=== PATIENT | male | born 1965 | race Caucasian/White ===

== ENCOUNTER 2019-07-15 08:50 | Outpatient (CLI) | payer BC ==
--- NOTE | 2019-07-15 09:21 | ULT ---
BILATERAL CAROTID DUPLEX ULTRASOUND: HISTORY: CVA TECHNIQUE: Grayscale, color-flow and spectral Doppler ultrasound imaging of the extracranial carotid artery syst ems was performed bilaterally. FINDINGS: There is minimal intimal thickening. The peak systolic velocity in the right ICA measures 61 cm/s. The peak systolic velocity in the left ICA measures 83 cm/s. Vertebral flow: antegrade, bilaterally. IMPRESSION: No hemodynamically significant stenosis of Both ICAs.
== END 2019-07-15 08:51 | disposition home or self-care (01) ==
LOC: SCSULT 08:50
PROVIDERS: ATTEND Psychiatry & Neurology Neurology
DX: I63.9 Cerebral infarction, unspecified (principal)
CPT/HCPCS: 93880

== ENCOUNTER 2019-11-09 11:57 | Observation (INO) | payer BC ==
[2019-11-09] MEDS ORDERED: Lorazepam 2 MG/ML VIAL SLOW IVP PRN (16:12)
[2019-11-09] MEDS ORDERED: Zolpidem Tartrate 5 MG TAB PO PRN (16:12)
[2019-11-09] MEDS ORDERED: Loperamide HCl 2 MG CAP PO PRN (16:12)
[2019-11-09] MEDS ORDERED: Ondansetron PF 4 MG/2 ML Vial IVP PRN (16:12)
[2019-11-09] MEDS ORDERED: Calcium Carbonate 500 MG ChewTAB PO PRN (16:12)
[2019-11-09] MEDS ORDERED: Bisacodyl 10 MG SUPP PR PRN (16:12)
[2019-11-09] MEDS ORDERED: Acetaminophen 325 MG TAB PO PRN (16:12)
[2019-11-09] MEDS ORDERED: Ondansetron ODT 4 MG TAB PO PRN (16:12)
[2019-11-09] MEDS ORDERED: Senokot S 8.6-50 MG TAB PO PRN (16:12)
[2019-11-09] MEDS ORDERED: Guaifenesin DM 100-10/5 ML UDCUP PO PRN (16:12)
[2019-11-09 16:53] VITALS: BMI 26.4
[2019-11-09] MEDS: Sodium Chloride 0.9% 1,000 ML IV SCH (18:10)
--- NOTE | 2019-11-09 18:20 | HP ---
PRIMARY CARE PHYSICIAN: Chris Gary DO REASON FOR ADMISSION: Seizure. HISTORY OF PRESENT ILLNESS: A 54-year-old male who has underlying history of multi-infarct dementia and he followed one time to Neurology. The patient was evaluated by his primary care physician, who did mini-mental status and the patient was found with dementia and that is why he was referred to Neurology and Neurology ordered MRI as a baseline and reported as multi-infarct dementia. The patient was started on aspirin and Lipitor since then. The patient was having no problems so far, but the patient reports that in August of this year when they were at vacation, the patient had episode of altered mental status. At that time, the patient had syncopal episode and the patient was not witnessed at that time, and the patient became normal and subsequently, the patient was having episodic altered mental status and dizzy spell, and that also happened yesterday. Last night, the patient woke up around the middle of the night and at that time, he was fine, but when the patient and his was sleeping, at that point, the patient started having weird voice and the patient started having generalized tonic-clonic seizure with mild tongue bite and frothing. The patient's called 911 and subsequently, the patient was brought to emergency room for evaluation. As the patient was initially evaluated at [facility], where he had routine blood test, which was normal and CT brain was negative. The patient was transferred from [facility] for a neuro evaluation. At [facility], the patient was given Tdap. The patient had EKG over there, which was normal sinus rhythm. Urinalysis was clear and hemoglobin was 12 and creatinine was 1.0. REVIEW OF SYSTEMS: CONSTITUTIONAL: Negative for weight loss or gain, ability to conduct usual activities. SKIN: Negative for rash, itching. EYES: Negative for double vision, pain. ENT/MOUTH: Negative for nose bleeding, neck stiffness, pain, tenderness. CARDIOVASCULAR: Negative for palpitations, dyspnea on exertion, orthopnea. RESPIRATORY: Negative for shortness of breath, wheezing, cough, hemoptysis, fever or night sweats. GASTROINTESTINAL: Negative for poor appetite, abdominal pain, heartburn, nausea, vomiting, constipation, or diarrhea. GENITOURINARY: Negative for urgency, frequency, dysuria, nocturia. MUSCULOSKELETAL: Negative for pain, swelling. NEUROLOGIC/PSYCHIATRIC: Negative for anxiety, depression. ALLERGY/IMMUNOLOGIC: Negative for skin rash, bleeding tendency. Please see my HPI for pertinent positives and negatives. All other review of systems reviewed and negative except as mentioned in HPI. PAST MEDICAL HISTORY: History of multiple infarct dementia, enlarged aorta. PAST SURGICAL HISTORY: Hemorrhoidectomy and tonsillectomy. PAST PSYCHIATRIC HISTORY: Reviewed and negative. SOCIAL HISTORY: The patient is , lives at home with his . No history of tobacco, alcohol, or illicit drug abuse. FAMILY HISTORY: No family history of coronary artery disease or stroke, but seizure runs among family member. CURRENT HOME MEDICATIONS: 1. Allopurinol 300 mg p.o. daily. 2. Aspirin 81 mg daily. 3. Lipitor 20 mg p.o. at bedtime. ALLERGIES: NO KNOWN DRUG ALLERGY. EMERGENCY ROOM COURSE: Reviewed. PHYSICAL EXAMINATION: VITAL SIGNS: Blood pressure 114/69, pulse 64, respiratory rate 14, temperature 98.2, and saturation 98% on room air. Weight 86.2 kg. GENERAL: The patient is currently alert, awake, no acute distress. HEENT: Head, normocephalic and atraumatic. NECK: Supple. No JVD. No meningeal signs of irritation. LUNGS: Clear to auscultation without any rhonchi or rales. CARDIAC: S1 and S2 regular, no murmur, no gallop, no rub. ABDOMEN: Soft, bowel sounds present, nontender, nondistended. No organomegaly. No mass. EXTREMITIES: No edema. Good distal pulsation. NEUROLOGIC: Grossly nonfocal examination. SIGNIFICANT LABS: Blood test done at [facility] reviewed completely and noted that all labs including CBC, CMP normal, and CT brain negative for any acute process. ASSESSMENT AND PLAN: 1. New onset seizure, suspecting from history of multi-infarct dementia. We will obtain EEG. We will defer further investigation to Neurology. We will consult Neurology. The patient may need Keppra upon discharge given multiple episodes of similar problem in the past. We will go ahead and start Keppra 1000 mg b.i.d. and then reduce dose to 500 mg p.o. b.i.d. We will continue with IV fluid. We will provide seizure precaution. We will repeat labs tomorrow. 2. Multi-infarct dementia. Continue aspirin and Lipitor as per home dosage. 3. Gout. We will continue allopurinol 100 mg p.o. daily. 4. Deep venous thrombosis prophylaxis not needed, because we are expecting discharge in 24 hours. Gastrointestinal prophylaxis, Pepcid 20 mg p.o. b.i.d. CODE STATUS: The patient is full code. DISPOSITION PLAN: Based on clinical course, likely within 24 hours. Plan of care discussed with the patient in detail. Job ID: [id number]
[2019-11-09 20:08] LABS: Amphetamine Not Detected (NotDetected); Barbiturates Screen Not Detected (NotDetected); Benzodiazepine Screen Not Detected (NotDetected); Cocaine Metabolite Screen Not Detected (NotDetected); Medtox Control Line Valid? VALID (VALID); Medtox Reader # READER 4; Methadone Not Detected (NotDetected); Methamphetamine Not Detected (NotDetected); Opiate Screen Not Detected (NotDetected); Oxycodone Screen Not Detected (NotDetected); Phencyclidine (PCP) Not Detected (NotDetected); THC/Cannabinoid Screen Not Detected (NotDetected); Tricyclic Screen Not Detected (NotDetected)
[2019-11-09] MEDS: levETIRAcetam 500 MG TAB PO SCH (20:40)
[2019-11-09] MEDS: Famotidine 20 MG TAB PO SCH (20:40)
[2019-11-09] MEDS ORDERED: Atorvastatin Calcium 20 MG TAB PO SCH (21:00)
[2019-11-10] MEDS: Sodium Chloride 0.9% 1,000 ML IV SCH (04:29)
[2019-11-10 06:03] LABS: #Lymphocytes 1.9 thou/uL (1.20-3.40); #Monocytes 0.5 thou/uL (0.11-0.59); #Neutrophils 2.9 thou/uL (1.40-6.50); %Basophils 0.8 % (0.0-1.0); %Eosinophils 0.7 % (0.0-10.0); %Lymphocytes 35.2 % (21.0-51.0); %Monocytes 8.6 % (0.0-10.0); %Neutrophils 54.7 % (42.0-75.0); Mean Corpuscular HGB CONC 32.8 g/dL (32.0-36.0); Mean Corpuscular Hemoglobin 30.2 pg (27.0-31.0); Mean Corpuscular Volume 91.9 fL (78.0-98.0); Mean Platelet Volume 9.2 fL (7.4-10.4); Platelet Count 202 thou/uL (130-400); RBC Distribution Width 12.3 % (11.5-14.5); Red Blood Cell (RBC) Count 3.98 mill/uL (4.70-6.10); White Blood Cell (WBC) Count 5.3 thou/uL (4.8-10.8)
[2019-11-10 06:26] LABS: ALT (SGPT) 18 U/L (8-55); AST (SGOT) 19 U/L (5-34); Albumin 3.5 g/dL (3.5-5.0); Alkaline Phosphatase 69 U/L (40-110); Anion Gap 10 mmol/L (10-20); BUN (Urea Nitrogen) 11 mg/dL (8.4-25.7); Bilirubin, Total 1.2 mg/dL (0.2-1.2); Calc. Creatinine Clearance 99 mL/min (70-130); Calcium 8.3 mg/dL (7.8-10.44); Carbon Dioxide 24 mmol/L (22-29); Chloride 108 mmol/L (98-107); Estimated GFR-MDRD 79; Globulin 2.4 g/dL (2.4-3.5); Glucose 95 mg/dL (70-105); Magnesium 1.9 mg/dL (1.6-2.6); Protein, Total 5.9 g/dL (6.0-8.3); Sodium 138 mmol/L (136-145)
[2019-11-10] MEDS ORDERED: Allopurinol 100 MG TAB PO SCH (09:00)
[2019-11-10] MEDS ORDERED: Aspirin 81 mg Enteric Coated Tablet PO SCH (09:00)
[2019-11-10] MEDS: Famotidine 20 MG TAB PO SCH (09:46)
[2019-11-10] MEDS: levETIRAcetam 500 MG TAB PO SCH (09:46)
--- NOTE | 2019-11-10 11:20 | MRI ---
BRAIN MRI WITH AND WITHOUT CONTRAST: Date: 11/10/2019 COMPARISON: None. HISTORY: Seizure activity, evaluate for an intracranial mass lesion. TECHNIQUE: Multiplanar, multisequence MR imaging of the brain is provided with and without contrast. FINDINGS: The diffusion-weighted imaging demonstrates no evidence for acute infarction. The axial gradient echo imaging demonstrates no evidence for intracranial hemorrhage. There are a few scattered linear foci of increased T2 signal within bilateral cerebellar hemispheres, right greater than left. These finding suggest remote small bilateral cerebellar infarctions. Arterial flow-voids at the axial level of the skull base appear grossly unremarkable on the T2-weight ed imaging. The visualized paranasal sinuses and mastoid air cells demonstrate minimal mucosal thicke david within the alveolar recess of bilateral maxillary sinuses. The postcontrast imaging demonstrates no abnormal enhancement within the brain parenchyma. No mass le bobby or mass effect. No ventricular enlargement. IMPRESSION: No intracranial mass lesion/mass effect, evidence of intracranial hemorrhage, or evidence of acute in farction. There are multiple linear areas of increased T2 signal within the cerebellar hemispheres, r ight more numerous than left, suggesting foci of prior posterior fossa infarction. POS: [facility]
--- NOTE | 2019-11-10 11:28 | PDOC.HOSPP ---
- Subjective Encounter Date: 11/10/19 Encounter Time: 10:15 Subjective: awake, no further seizures after admission at bedside is moving all extremities - Objective Vital Signs & Weight: Vital Signs (12 hours) Temp Pulse Resp BP Pulse Ox 11/10/19 07:11 98.0 F 70 18 100/60 95 11/10/19 03:34 98.6 F 69 14 98/58 L 97 11/09/19 23:39 98.2 F 68 13 106/58 L 98 Weight Weight 184 lb 4 oz I&O: 11/09/19 11/10/19 11/11/19 06:59 06:59 06:59 Intake Total 1680 Output Total 650 Balance 1030 Result Diagrams: 11/10/19 04:47 11/10/19 04:47 Hospitalist ROS - Medication Medications: Active Medications Generic Name Dose Route Start Last Admin Trade Name Freq PRN Reason Stop Dose Admin Allopurinol 100 mg 11/10/19 09:00 11/10/19 09:46 Zyloprim PO 100 mg DAILY KARLA Administration Aspirin 81 mg 11/10/19 09:00 11/10/19 09:46 Ecotrin PO 81 mg DAILY KARLA Administration Atorvastatin Calcium 20 mg 11/09/19 21:00 11/09/19 20:40 Lipitor PO 20 mg HS KARLA Administration Famotidine 20 mg 11/09/19 21:00 11/10/19 09:46 Pepcid PO Not Given BID KARLA Sodium Chloride 1,000 mls @ 75 mls/hr 11/09/19 16:15 11/10/19 04:29 Normal Saline 0.9% IV 1,000 mls .[id number] KARLA Administration Levetiracetam 1,000 mg 11/09/19 21:00 11/10/19 09:46 Keppra PO 1,000 mg BID KARLA Administration - Exam General Appearance: awake alert Eye: PERRL, anicteric sclera ENT: no oropharyngeal lesions, moist mucosa Neck: supple, no JVD Heart: RRR, no murmur Respiratory: no wheezes, no rales Gastrointestinal: soft, non-tender, non-distended, normal bowel sounds Extremities: no cyanosis, no edema Neurological: cranial nerve grossly intact, no focal deficits Psychiatric: normal affect, A&O x 3 Hosp A/P (1) Seizure Code(s): R56.9 - UNSPECIFIED CONVULSIONS Status: Acute (2) H/O: CVA (cerebrovascular accident) Code(s): Z86.73 - PRSNL HX OF TIA (TIA), AND CEREB INFRC W/O RESID DEFICITS Status: Chronic (3) h/o multi-infarct dementia Status: Chronic (4) Dyslipidemia Code(s): E78.5 - HYPERLIPIDEMIA, UNSPECIFIED Status: Chronic (5) Gout Code(s): M10.9 - GOUT, UNSPECIFIED Status: Chronic Qualifiers: Gout site: unspecified site - Plan is on keppra 1g bid await neuro opinion, eeg MRI with contrast shows no mass, has prior infarcts ? in cerebellar hemispheres continue asp, lipitor to ambulate as tolerated hemo/neurostable dc plan per neurology advice
[2019-11-10] MEDS ORDERED: Magnevist 469MG/ML 20 ML VIAL ONE (14:51)
[2019-11-10 15:15] VITALS: BP 117/66; TEMP 98.9
[2019-11-10] MEDS ORDERED: levETIRAcetam 500 MG TAB PO SCH (21:00)
--- NOTE | 2019-11-11 09:51 | CON ---
DATE OF CONSULTATION: 11/10/2019 CONSULTING PHYSICIAN: Hospitalist Service. IMPRESSION: 1. New onset seizures. 2. Recent evaluation for mild cognitive impairment. PLAN: 1. Continue Keppra 500 mg twice a day. 2. Office followup. HISTORY OF PRESENT ILLNESS: Mr. Frey is a 54-year-old man who was recently seen in the office with complaints of some memory decline. He had an MRI of the brain done, which showed some unusual abnormal signal in the cerebellum, but otherwise cortically appeared normal. He has a history of a blackout several months ago, which was thought to possibly have been hypotensive in origin. Prior to admission, his witnessed generalized tonic-clonic seizure. He had a postictal interval of at least 45 minutes before he was aware of his surroundings. He is brought back in the hospital for evaluation. Repeat MRI of the brain was done, nothing new was found. His vital signs have been stable. He has been afebrile. His lab work was all unremarkable including a tox screen. He has not had any further episodes. On exam, he is alert and appropriate. His exam is nonfocal. Given the combination of some cognitive decline and recurrent episode with convulsive activity, I would continue the Keppra and schedule follow up in the office next month. I will continue to follow in his care. Job ID: [id number]
--- NOTE | 2019-11-11 14:11 | DIS ---
DATE OF ADMISSION: 11/09/2019 DATE OF DISCHARGE: 11/10/2019 DISCHARGE DISPOSITION: To home. PRIMARY DISCHARGE DIAGNOSES: 1. New-onset seizure, likely due to underlying vascular insult. 2. History of cerebrovascular accident in the past. 3. Dyslipidemia. 4. Gout. 5. Mild Cognitive impairment. PROCEDURES DONE DURING HOSPITALIZATION: The patient has had MRI with and without contrast done, which showed no intracranial mass lesion or mass effect. There was no evidence of intracranial hemorrhage or acute infarct. There are multiple linear areas of increased T2 signal within the cerebellar hemispheres, right more numerous than left suggesting foci of prior posterior fossa infarcts. Echo with 2D Doppler showed EF of 60% to 65%. There was moderate aortic stenosis with valve area of 1.2 square cm. H and H of 12 and 36, platelet count 202. BUN 11, creatinine 0.9, albumin 3.5. TSH 0.81. Prolactin 12. Urine drug screen was negative. INPATIENT CONSULT: Dr. Del Angel for Neurology. DISCHARGE PLAN: The patient to follow up with Dr. Del Angel in 4 weeks. He also needs to follow up with Dr. Chris Gary, his primary care physician in 1 week. BRIEF COURSE DURING HOSPITALIZATION: The patient initially came to ER after having an episode of seizure at home. This was witnessed by . He has had similar episodes in the past, which were of short duration and were not exactly witnessed. He has known history of mild cognitive impairment and has been following up with Dr. Del Angel as well. In view of new-onset seizure, he has had MRI with and without contrast done, which has not revealed a mass or bleed. He has had prior CVA in the cerebellar hemispheres. He was started on Keppra during this hospitalization for seizures. He needs to continue at 500 mg twice daily. The patient is advised not to drive until cleared by Dr. Del Angel. Please see a [id number] documentation for the day of discharge on [email or web address]. Job ID: [id number] [facility]
== END 2019-11-10 17:50 | disposition home or self-care (01) ==
LOC: ERS 11:57 → 2SE 16:45
PROVIDERS: ADMIT Psychiatry & Neurology Neurology; ATTEND Psychiatry & Neurology Neurology
DX: G40.409 Other generalized epilepsy and epileptic syndromes, not intractable, without status epilepticus (principal); F01.50 Vascular dementia, unspecified severity, without behavioral disturbance, psychotic disturbance, mood disturbance, and anxiety; E78.5 Hyperlipidemia, unspecified; M10.9 Gout, unspecified; Z86.73 Personal history of transient ischemic attack (TIA), and cerebral infarction without residual deficits; Z79.82 Long term (current) use of aspirin; Z79.899 Other long term (current) drug therapy
CPT/HCPCS: 36415; 70553; 80053; 80306; 83735; 84146; 84443; 85025; 93306; 95816; 95819; 96360; 96361; 99285; A9579; G0378